=== PATIENT | female | born 1970 | race Caucasian/White ===

== ENCOUNTER 2019-05-21 10:02 | Emergency (ER) | payer SELFPAY ==
[~2019-05-21] VITALS: Ht 165.1 cm; Wt 74.8 kg
[~2019-05-21 10:02] MED LIST: CEPH-264 PO; CYCL10TA2 PO; HYDR-3164 PO; PHEN-318 PO
[2019-05-21 10:10] VITALS: BP 155/121
--- NOTE | 2019-05-21 10:25 | PHYS DOC ---
Past Medical History Past Medical History: Diabetes-Type II, Hypertension Past Surgical History: Appendectomy, Cholecystectomy, , Hysterectomy Alcohol Use: None Drug Use: None Adult General Chief Complaint Chief Complaint: KNEE INJURY HPI HPI Patient is a 48 year old female presented to ER today for evaluation of left kn ee pain. Patient says she twisted her knee about a months ago, had been having pain since. Patient was walking yesterday and twisted her left knee again, started having pain again. She denies any known leg swelling. She says she had been taking Tylenol and ibuprofen at home but did not relieve her pain. ALL OTHER REVIEW OF SYSTEMS ARE NEGATIVE UNLESS OTHERWISE NOTED IN HPI Review of Systems Review of Systems SEE ABOVE Current Medications Current Medications Current Medications Medications (Trade) Dose Ordered Sig/Allyn Start Time Stop Time Status Last Admin Dose Admin Ketorolac Tromethamine (Toradol Im) 60 mg 1X ONCE 05/21/19 10:45 05/21/19 10:46 DC 05/21/19 11:03 60 MG Allergies Allergies Allergies Coded Allergies Type Severity Reaction Last Updated Verified No Known Drug Allergies 04/15/16 No Physical Exam Physical Exam SEE ABOVE Constitutional: Well developed, well nourished, no acute distress, non-toxic sammy earance. [] Skin: Warm, dry, no erythema, no rash. [] Back: No tenderness, no CVA tenderness. [] Extremities: no cyanosis, no clubbing, ROM intact, no edema. There is tenderness at the medial collateral ligament area. No swelling, No contusion, left knee joint is stable. NO CALF SWELLING OR TENDERNESS. Neurologic: Alert and oriented X 3, normal motor function, normal sensory function, no focal deficits noted. [] Psychologic: Affect normal, judgement normal, mood normal. [] Current Patient Data Vital Signs Vital Signs Date Time Temp Pulse Resp B/P (MAP) Pulse Ox O2 Delivery O2 Flow Rate FiO2 05/21/19 10:10 97.8 95 16 155/121 (132) 98 Room Air 97.8 EKG EKG [] Radiology/Procedures Radiology/Procedures [][facility] [address] [place] [address] IMAGING REPORT Signed PATIENT: YENI MAGALLANES ACCOUNT: [id number] : 1970 LOCATION: ER AGE: 48 SEX: F EXAM STATUS: REG ER ORD. PHYSICIAN: LUC KENNEDY DO REASON: left knee injured, twisted it yesterday, lt medial knee pain PROCEDURE: KNEE LEFT 3V Examination: 3 views of the left knee HISTORY: History of fall, medial knee pain COMPARISON: None available. FINDINGS: The alignment of the knee joint grossly appears unremarkable. No acute fracture or dislocation identified. Mild joint space loss identified in the medial, lateral, patellofemoral compartments. IMPRESSION: No acute osseous findings. Electronically signed by: Tico Roth MD (05/21/2019 11:05 AM) [id number] DICTATED and SIGNED BY: TICO ROTH MD DATE: 05/21/19 1105 Course & Med Decision Making Course & Med Decision Making Pertinent Labs and Imaging studies reviewed. (See chart for details) [] Dragon Disclaimer Dragon Disclaimer This electronic medical record was generated, in whole or in part, using a voice recognition dictation system. Departure Departure Impression: Primary Impression: Sprain of left knee Disposition: 01 HOME, SELF-CARE Condition: STABLE Referrals: NO PCP (PCP) JENNIFER KESSLER II, MD PLEASE CALL THIS ORTHOPEDIC DOCTOR FOR OUTPATIENT EVALUATION. Patient Instructions: Knee Sprain Scripts Tramadol Hcl (TRAMADOL HCL) 50 Mg Tablet 50 MG PO Q6HRS PRN for PAIN, #20 TAB Prov: LUC KENNEDY DO 05/21/19 LUC KENNEDY DO May 21, 2019 10:25
[2019-05-21] MEDS ORDERED: KETOROLAC 60 MG/2 ML VIAL. IM ONE (10:45)
--- NOTE | 2019-05-21 11:08 | RAD ---
Examination: 3 views of the left knee HISTORY: History of fall, medial knee pain COMPARISON: None available. FINDINGS: The alignment of the knee joint grossly appears unremarkable. No acute fracture or dislocation identified. Mild joint space loss identified in the medial, lateral, patellofemoral compartments. IMPRESSION: No acute osseous findings. Electronically signed by: Tico Roth MD (05/21/2019 11:05 AM) [id number]
[2019-05-21] MEDS ORDERED: TRAM50TA PO (11:26)
== END 2019-05-21 11:30 | disposition home or self-care (01) ==
LOC: ER 10:02
DX: S83.92XA Sprain of unspecified site of left knee, initial encounter (principal); E11.9 Type 2 diabetes mellitus without complications; I10 Essential (primary) hypertension; X50.9XXA Other and unspecified overexertion or strenuous movements or postures, initial encounter; Y93.89 Activity, other specified; Y92.89 Other specified places as the place of occurrence of the external cause; Y99.8 Other external cause status
CPT/HCPCS: 73562; 96372; 99284; J1885

== ENCOUNTER 2019-08-23 13:56 | Emergency (ER) | payer SELFPAY ==
[~2019-08-23] VITALS: Ht 165.1 cm; Wt 77.1 kg
[~2019-08-23 13:56] MED LIST changes: +TRAM50TA PO
[2019-08-23 14:37] VITALS: BP 158/100
--- NOTE | 2019-08-23 14:53 | PHYS DOC ---
Past Medical History Past Medical History: Diabetes-Type II, Hypertension Past Surgical History: Appendectomy, Cholecystectomy, , Hysterectomy, Tubal ligation Alcohol Use: None Drug Use: None Adult General Chief Complaint Chief Complaint: BACK PAIN OR INJURY [facility] HPI Patient is a 49 year old female who presents with left side back pain after she reached for something [id number] this morning around 4 AM. She has moderate pain when she moves. Denies any other symptoms. Review of Systems Review of Systems Constitutional: Denies fever or chills [] Eyes: Denies change in visual acuity, redness, or eye pain [] HENT: Denies nasal congestion or sore throat [] Respiratory: Denies cough or shortness of breath [] Cardiovascular: No additional information not addressed in HPI [] GI: Denies abdominal pain, nausea, vomiting, bloody stools or diarrhea [] : Denies dysuria or hematuria [] Musculoskeletal: Reports back pain Integument: Denies rash or skin lesions [] Neurologic: Denies headache, focal weakness or sensory changes [] Endocrine: Denies polyuria or polydipsia [] Complete systems were reviewed and found to be within normal limits, except as documented in this note. Allergies Allergies Allergies Coded Allergies Type Severity Reaction Last Updated Verified No Known Drug Allergies 04/15/16 No Physical Exam Physical Exam Constitutional: Well developed, well nourished, no acute distress, non-toxic appearance. [] HENT: Normocephalic, atraumatic, bilateral external ears normal, oropharynx moist, no oral exudates, nose normal. [] Eyes: PERRLA, EOMI, conjunctiva normal, no discharge. [] Neck: Normal range of motion, no tenderness, supple, no stridor. [] Cardiovascular:Heart rate regular rhythm, no murmur [] Lungs & Thorax: Bilateral breath sounds clear to auscultation [] Abdomen: Bowel sounds normal, soft, no tenderness, no masses, no pulsatile masses. [] Skin: Warm, dry, no erythema, no rash. [] Back: Trigger point to L side of back. Extremities: No tenderness, no cyanosis, no clubbing, ROM intact, no edema. [] Neurologic: Alert and oriented X 3, normal motor function, normal sensory function, no focal deficits noted. [] Psychologic: Affect normal, judgement normal, mood normal. [] Current Patient Data Vital Signs Vital Signs Date Time Temp Pulse Resp B/P (MAP) Pulse Ox O2 Delivery O2 Flow Rate FiO2 08/23/19 14:37 97.8 108 16 158/100 (119) 98 Room Air 97.8 EKG EKG [] Radiology/Procedures Radiology/Procedures [] Course & Med Decision Making Course & Med Decision Making Pertinent Labs and Imaging studies reviewed. (See chart for details) A medical screening exam was performed on this patient and the patient does not appear to be having a medical emergency. Her symptoms are not of sufficient severity and within reasonable medical probability it is unlikely the absence of immediate medical attention would result in placing the health of the individual (or, with respect to a woman, the health of the woman or her unborn child) in serious jeopardy, serious impairment to bodily functions, or serious dysfunction of any bodily organ or part. If , the patient is not in labor Discussed with patient that this is likely a pulled muscle. Discussed non- pharmacological measures to help. Dragon Disclaimer Dragon Disclaimer This electronic medical record was generated, in whole or in part, using a voice recognition dictation system. Departure Departure Impression: Primary Impression: Encounter for medical screening examination Additional Impression: Musculoskeletal back pain Disposition: HOME, SELF-CARE Condition: STABLE Referrals: NO PCP (PCP) Patient Instructions: Musculoskeletal Pain Additional Instructions: Thank you for visiting [facility]. We appreciate you trusting us with your care. If any additional problems come up don't hesitate to return to visit us. Please follow up with your primary care provider so they can plan additional care if needed and know about the problem that you had. If symptoms worsen come back to the Emergency Department. Any concerning symptoms that start such as chest pain, shortness of air, weakness or numbness on one side of the body, running high fevers or any other concerning symptoms return to the ER. Problem Qualifiers RICKEY FONTENOT APRN Aug 23, 2019 14:53
== END 2019-08-23 14:59 | disposition home or self-care (01) ==
LOC: ER 13:56
DX: M54.89 Other dorsalgia (principal); I10 Essential (primary) hypertension; E11.9 Type 2 diabetes mellitus without complications; Z90.89 Acquired absence of other organs; Z90.49 Acquired absence of other specified parts of digestive tract; Z90.710 Acquired absence of both cervix and uterus; Z98.51 Tubal ligation status
CPT/HCPCS: 99281